=== PATIENT | female | born 1955 | race Hispanic/Latino ===

== ENCOUNTER 2018-01-19 12:17 | Emergency (ER) | payer OTHER ==
--- NOTE | 2018-01-19 14:18 | Emergency Department Report ---
ED Dizziness HPI - General Chief Complaint: Dizziness Stated Complaint: DIZZNESS/NAUSEA Time Seen by Provider: 01/19/18 13:57 Source: patient, family, EMS Mode of arrival: Wheelchair Limitations: No Limitations - History of Present Illness Initial Comments: This is 62-year-old female here report that she was having nausea and dizziness started 4 AM this morning. She states that she came to the hospital by EMS. She is had one previous episode of dizziness with room spinning around. She said that she received Zofran from EMS on her way to the hospital. She denies any chest pain or shortness of breath. Denies any cough, fever or chills. Denies any headache, sore throat or any visual disturbances. She has a history of COPD and anxiety. Patient takes Xanax which she buys off the street she says she takes 1 mg pill about 4 times a night to help her to sleep and for anxiety. Denies any history of withdrawal. Denies any back or abdominal pain. Denies any urinary burning i but reports urinary for frequency. Pain is 0 out of 10 at present. MD Complaint: dizziness, lightheadedness -: This morning Timing: sudden onset Description: sense of movement, "room spinning", lightheadedness, off-balance, nausea History of Same: Yes History of Trauma: No Severity: severe Improves With: rest Worsens With: movement, position, exertion Associated Symptoms: denies: ataxia, chest pain, diaphoresis, fever/chills, loss of appetite, malaise, rash, seizure, shortness of breath, syncope, weakness - Related Data Previous Rx's Medication Instructions Recorded Last Taken Type Cetirizine HCl [ZyrTEC] 10 mg PO QAM 14 Days #14 capsule 01/19/18 Unknown Rx Fluticasone [Flonase] 1 spray NS QDAY 14 Days #1 bottle 01/19/18 Unknown Rx Meclizine [Antivert] 25 mg PO TID PRN #15 tablet 01/19/18 Unknown Rx Promethazine [Phenergan TAB] 25 mg PO Q6HR PRN #12 tab 01/19/18 Unknown Rx cephALEXin [Keflex] 500 mg PO Q8HR 7 Days #14 cap 01/19/18 Unknown Rx Allergies Allergy/AdvReac Type Severity Reaction Status Date / Time No Known Allergies Allergy Verified 01/19/18 12:45 ED Review of Systems ROS: Stated complaint: DIZZNESS/NAUSEA Other details as noted in HPI Constitutional: denies: chills, fever Eyes: denies: eye pain, eye discharge, vision change ENT: congestion. denies: ear pain, throat pain Respiratory: denies: cough, shortness of breath, SOB with exertion, SOB at rest , stridor, wheezing Cardiovascular: denies: chest pain, palpitations, edema, syncope Gastrointestinal: nausea. denies: abdominal pain, vomiting, diarrhea, constipation, hematemesis, melena, hematochezia Genitourinary: frequency. denies: urgency, dysuria, hematuria, discharge Musculoskeletal: denies: back pain, joint swelling, arthralgia Skin: denies: rash, lesions Neurological: abnormal gait, vertigo. denies: headache, weakness, numbness, paresthesias, confusion Psychiatric: denies: anxiety, depression Hematological/Lymphatic: denies: easy bleeding, easy bruising ED Past Medical Hx - Past Medical History Previous Medical History?: Yes Hx Psychiatric Treatment: Yes (anxiety) Hx COPD: Yes - Surgical History Past Surgical History?: No - Family History Family history: hypertension - Social History Smoking Status: Current Every Day Smoker Substance Use Type: None - Medications Home Medications: Home Medications Medication Instructions Recorded Confirmed Last Taken Type Cetirizine HCl [ZyrTEC] 10 mg PO QAM 14 Days #14 capsule 01/19/18 Unknown Rx Fluticasone [Flonase] 1 spray NS QDAY 14 Days #1 bottle 01/19/18 Unknown Rx Meclizine [Antivert] 25 mg PO TID PRN #15 tablet 01/19/18 Unknown Rx Promethazine [Phenergan TAB] 25 mg PO Q6HR PRN #12 tab 01/19/18 Unknown Rx cephALEXin [Keflex] 500 mg PO Q8HR 7 Days #14 cap 01/19/18 Unknown Rx ED Physical Exam - General Limitations: No Limitations General appearance: alert, in no apparent distress - Head Head exam: Present: atraumatic, normocephalic, normal inspection, other (normal exam) - Eye Eye exam: Present: normal appearance, PERRL, EOMI. Absent: nystagmus, periorbital swelling, periorbital tenderness Pupils: Present: normal accommodation - ENT ENT exam: Present: normal orophraynx, mucous membranes moist, normal external ear exam, other (bilateral maxillary and frontal sinuses nontender to palpate. Nasal mucosa congested with clear drainage). Absent: normal exam, TM's normal bilaterally (bilateral TM congested without erythema) - Neck Neck exam: Present: normal inspection, full ROM, other (no C-spine tenderness and negative bruit). Absent: tenderness, lymphadenopathy - Respiratory Respiratory exam: Present: normal lung sounds bilaterally, decreased breath sounds (decreased breath sounds to lung cavazos due to COPD). Absent: respiratory distress, wheezes, rales, rhonchi, stridor, chest wall tenderness, accessory muscle use, prolonged expiratory - Cardiovascular Cardiovascular Exam: Present: regular rate, normal rhythm, normal heart sounds. Absent: systolic murmur, diastolic murmur - GI/Abdominal GI/Abdominal exam: Present: soft, normal bowel sounds. Absent: distended, tenderness, guarding, rebound, rigid, mass - Extremities Exam Extremities exam: Present: normal inspection, full ROM, normal capillary refill , other (No cce. + 2 pulses in all extremities, no neurovascular compromise). Absent: tenderness, pedal edema, joint swelling, calf tenderness - Back Exam Back exam: Present: normal inspection, full ROM, other (ambulates but have abnormal gait because she says she is dizzy and feels like the room is spinning) . Absent: tenderness, CVA tenderness (R), CVA tenderness (L), muscle spasm, paraspinal tenderness, vertebral tenderness, rash noted - Neurological Exam Neurological exam: Present: alert, oriented X3, abnormal gait (due to vertigo), reflexes normal. Absent: motor sensory deficit - Expanded Neurological Exam Expanded Neurological exam: Absent: innattentive, memory loss-remote event, memory loss- recent event, expressive aphasia, total aphasia, tremor, protecting the airway Patient oriented to: Present: person, place, time Speech: Present: fluid speech Cranial nerves: EOM's Intact: Normal, Gag Reflex: Normal, Tongue Deviation: Normal, Nystagmus: Normal, Facial Sensation: Normal Cerebellar function: Romberg: Abnormal Right, Abnormal Left Upper motor neuron: Pronator Drift: Abnormal Right, Abnormal Left, Sensory Extinction: Normal Sensory exam: Upper Extremity Light Touch: Normal, Upper Extremity Pin Prick: Normal, Upper Extremity Temperature: Normal, UE 2 Point Discrimination: Normal, Lower Extremity Light Touch: Normal, Lower Extremity Pin Prick: Normal, Lower Extremity Temperature: Normal, LE 2 Point Discrimination: Normal Motor strength exam: RUE: 5, LUE: 5, RLE: 5, LLE: 5 Best Eye Response (Fabrizio): (4) open spontaneously Best Motor Response (Fabrizio): (6) obeys commands Best Verbal Response (Fabrizio): (5) oriented [place] Total: 15 - Psychiatric Psychiatric exam: Present: normal affect, normal mood - Skin Skin exam: Present: warm, dry, intact, normal color. Absent: rash ED Course Vital Signs 01/19/18 01/19/18 01/19/18 12:42 16:30 18:54 Temperature 97.4 F L Pulse Rate 60 88 Pulse Rate [ 90 Lying] Pulse Rate [ 86 Sitting] Pulse Rate [ 96 H Standing] Respiratory 18 16 Rate Blood Pressure 125/50 Blood Pressure 116/80 [Left] Blood Pressure 122/68 [Lying] Blood Pressure 118/62 [Sitting] Blood Pressure 115/72 [Standing] O2 Sat by Pulse 97 98 Oximetry - Reevaluation(s) Reevaluation #1: 01/19/18 15:29 Patient receives Zofran 8 mg ODT, and Antivert 50 mg by mouth. Normal saline bolus in process. Awaiting UA collection. Reevaluation #2: 01/19/18 16:30 Orthostatic vital signs done and stable. IV fluid completed. Patient states that up and says she felt better her dizziness is not as bad. She says she still feels like the room is spinning. I will give patient some Phenergan because she says she is still nauseated. Lab work is stable. Reevaluation #3: 01/19/18 18:33 I reevaluated patient and she is able to ambulate without any difficulties. She says she is feeling a lot better. No nausea or feeling of room is spinning or feeling of moving when standing. She is able to ambulate without any abnormality in her gait. ED Medical Decision Making - Lab Data Result diagrams: 01/19/18 14:27 01/19/18 14:27 Lab Results 01/19/18 01/19/18 01/19/18 Range/Units 14:27 14:27 16:30 WBC 8.6 (4.5-11.0) K/mm3 RBC 4.97 (3.65-5.03) M/mm3 Hgb 15.2 H (10.1-14.3) gm/dl Hct 45.1 H (30.3-42.9) % MCV 91 (79-97) fl MCH 31 (28-32) pg MCHC 34 (30-34) % RDW 14.2 (13.2-15.2) % Plt Count 259 (140-440) K/mm3 Lymph % (Auto) 13.8 (13.4-35.0) % [place] % (Auto) 3.7 (0.0-7.3) % Eos % (Auto) 0.5 (0.0-4.3) % Baso % (Auto) 0.4 (0.0-1.8) % Lymph # 1.2 (1.2-5.4) K/mm3 [place] # 0.3 (0.0-0.8) K/mm3 Eos # 0.0 (0.0-0.4) K/mm3 Baso # 0.0 (0.0-0.1) K/mm3 Seg Neutrophils % 81.6 H (40.0-70.0) % Seg Neutrophils # 7.0 (1.8-7.7) K/mm3 Sodium 139 (137-145) mmol/L Potassium 4.1 (3.6-5.0) mmol/L Chloride 104.8 (98-107) mmol/L Carbon Dioxide 23 (22-30) mmol/L Anion Gap 15 mmol/L BUN 10 (7-17) mg/dL Creatinine 0.5 L (0.7-1.2) mg/dL Estimated GFR > 60 ml/min BUN/Creatinine Ratio 20 % Glucose 107 H (65-100) mg/dL Calcium 9.7 (8.4-10.2) mg/dL Magnesium 2.10 (1.7-2.3) mg/dL Total Bilirubin 0.40 (0.1-1.2) mg/dL Direct Bilirubin < 0.2 (0-0.2) mg/dL Indirect Bilirubin 0.2 mg/dL AST 17 (5-40) units/L ALT 14 (7-56) units/L Alkaline Phosphatase 107 (35-129) units/L Total Protein 7.7 (6.3-8.2) g/dL Albumin 4.1 (3.9-5) g/dL Albumin/Globulin Ratio 1.1 % Urine Color Yellow (Yellow) Urine Turbidity Clear (Clear) Urine pH 7.0 (5.0-7.0) Ur Specific [place] 1.009 (1.003-1.030) Urine Protein <15 mg/dl (Negative) mg/dL Urine Glucose (UA) Neg (Negative) mg/dL Urine Ketones Neg (Negative) mg/dL Urine Blood Neg (Negative) Urine Nitrite Neg (Negative) Urine Bilirubin Neg (Negative) Urine Urobilinogen < 2.0 (<2.0) mg/dL Ur Leukocyte Esterase Tr (Negative) Urine WBC (Auto) 1.0 (0.0-6.0) /HPF Urine RBC (Auto) 1.0 (0.0-6.0) /HPF U Epithel Cells (Auto) 1.0 (0-13.0) /HPF Urine Bacteria (Auto) 1+ (Negative) /HPF Urine Mucus Few /HPF Urine culture sent - EKG Data -: EKG Interpreted by Me (attending physician) EKG shows normal: sinus rhythm (sinus arrhythmia at 62 beats per minutes) - EKG Data Interpretation: no acute changes (no acute ST abnormalities.), other (mention of left atrial enlargement probably from COPD) - Radiology Data Radiology results: report reviewed CT scan of the head and brain dictated by radiologist and report reviewed by myself. Please see details below Patient: GEOVANNI MORA MR#: [id number] : 1955 Acct:[id number] Age/Sex: 62 / F ADM Date: 01/19/18 Loc: ED Attending Dr: Ordering Physician: YOHANA MACE Date of Service: 01/19/18 Procedure(s): CT head/brain wo con Accession Number(s): [id number] cc: YOHANA MACE CT HEAD WITHOUT CONTRAST INDICATION: Dizziness, nausea. COMPARISON: None similar. FINDINGS: Noncontrast head CT demonstrates overall normal ventricular size, though right lateral ventricle noted larger than the left, an anatomic variant. Slight periventricular and few white matter hypodensities. Normal sulci. No acute infarct, hemorrhage, mass effect, midline shift or abnormal extra-axial fluid collections. Normal image posterior fossa with preserved basilar cisterns. Symmetric eye globes. Clear paranasal sinuses and mastoid air cells. Atherosclerotic ICA calcifications. Mild right external auditory canal debris may be directly visualized. Normal calvarium and skull. Edentulous jaw. Multilevel moderate cervical spondylosis. CONCLUSION: No acute intracranial CT abnormality, as described. Thank you for the opportunity to participate in this patient's care. Transcribed By: RS Dictated By: VITALIY HERNANDEZ MD Electronically Authenticated By: VITALIY HERNANDEZ MD Signed Date/Time: 01/19/181511 DD/ 08 TD/TT: 01/19/181511 - Medical Decision Making This 62-year-old female [facility] via ambulance complaining of dizziness and nausea when she is experienced once before. This episode started this morning. Diagnostics: CT scan of the head and brain without contrast shows no acute abnormalities. Labs: Urinalysis negative except she has trace leukocyte esterase and 1+ bacteria. Urine culture sent. CBC and chemistry stable. EKG stable Assessment/plan 1:Vertigo-patient given Antivert 50 mg by mouth and emergency room and she is now feeling better without any feelings of vertigo. She is given IV fluids 1 L and orthostatic vital signs are stable. EKG stable. Opiate discharged home on Antivert 2: Nausea alone-she received Zofran 4 mg IV which did not relieve her nausea and received Phenergan 50 mg by mouth and now her nausea has resolved and she is able to tolerate juice without any difficulties. Patient reports no nausea present. Be discharged home on Phenergan 3: Vestibular abnormality due to rhinitis.-Physical exam with congested nasal mucosa with drainage and bilateral TM congested.--We will discharge home on Flonase and Zyrtec Urinary tract infection-patient with urinary frequency and will be discharged home with prescription for Keflex. I Explained diagnosis, lab results, EKG results, diagnosis and treatment plan the patient with medication and she voiced understanding. She does not have a primary care physician's I discussed with her she needs to follow up at [facility] for primary care visits and if she has recurrent vertigo she needs to follow up with neurologist and also if her symptoms recur and worsens to return to the emergency room and she voiced understanding. Patient to follow-up with primary care 3 days. Discharged home in stable condition with prescription for Antivert, Phenergan, Keflex, Flonase and Zyrtec. She is stable, vital signs stable and she has no episode of nausea or vertigo at present. Started home with her family. - Differential Diagnosis intracranial abnormality , vertigo, URI, bacterial infection Critical care attestation.: If time is entered above; I have spent that time in minutes in the direct care of this critically ill patient, excluding procedure time. 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 You will need follow-up in 3-5 days regarding in primary care visit. Follow up with neurologist as discussed for vertigo. Take Phenergan for nausea and presented drive or operate heavy machinery while taking this medication as a cause drowsiness Take Flonase, Zyrtec for nasal congestion and ear congestion and this will help with vertigo. TakeKeflex for urinary tract infection take Antivert for vertigo as prescribed If his symptoms return, please return to the emergency room. Received fluid intake to at least 2 L of water daily to keep hydrated Prescriptions: cephALEXin [Keflex] 500 mg PO Q8HR 7 Days #14 cap Cetirizine HCl [ZyrTEC] 10 mg PO QAM 14 Days #14 capsule Fluticasone [Flonase] 1 spray NS QDAY 14 Days #1 bottle Meclizine [Antivert] 25 mg PO TID PRN #15 tablet PRN Reason: Vertigo Promethazine [Phenergan TAB] 25 mg PO Q6HR PRN #12 tab PRN Reason: Nausea Referrals: [facility] [Outside] - 3-5 Days SUSHIL ENAMORADO MD [Staff Physician] - 3-5 Days Forms: Accompanied Note
[2018-01-19] MEDS ORDERED: NACL 0.9% 1000 ML 1,000 ML IV ONE (14:20)
[2018-01-19] MEDS ORDERED: ZOFRAN IV ONE (14:20)
[2018-01-19] MEDS ORDERED: ANTIVERT PO ONE (14:21)
[2018-01-19 14:48] LABS: Basophils % (Auto) 0.4 % (0.0-1.8); Eosinophils % (Auto) 0.5 % (0.0-4.3); Hematocrit 45.1 % (30.3-42.9); Hemoglobin 15.2 gm/dl (10.1-14.3); Lymphocytes # (Auto) 1.2 K/mm3 (1.2-5.4); Lymphocytes % (Auto) 13.8 % (13.4-35.0); Mean Corpuscular HGB Conc 34 % (30-34); Mean Corpuscular Hemoglobin 31 pg (28-32); Mean Corpuscular Volume 91 fl (79-97); Monocytes # (Auto) 0.3 K/mm3 (0.0-0.8); Monocytes % (Auto) 3.7 % (0.0-7.3); Platelet Count 259 K/mm3 (140-440); Red Blood Count 4.97 M/mm3 (3.65-5.03); Red Cell Distribution Width 14.2 % (13.2-15.2)
[2018-01-19 15:02] LABS: Alanine Aminotransferase 14 units/L (7-56); Albumin 4.1 g/dL (3.9-5); BUN/Creatinine Ratio 20; Blood Urea Nitrogen 10 mg/dL (7-17); Calcium 9.7 mg/dL (8.4-10.2); Hemolysis Index 32
[2018-01-19 15:12] LABS: Bilirubin,Direct < 0.2 mg/dL (0-0.2)
--- NOTE | 2018-01-19 15:14 | Cat Scan Report ---
CT HEAD WITHOUT CONTRAST INDICATION: Dizziness, nausea. COMPARISON: None similar. FINDINGS: Noncontrast head CT demonstrates overall normal ventricular size, though right lateral ventricle noted larger than the left, an anatomic variant. Slight periventricular and few white matter hypodensities. Normal sulci. No acute infarct, hemorrhage, mass effect, midline shift or abnormal extra-axial fluid collections. Normal image posterior fossa with preserved basilar cisterns. Symmetric eye globes. Clear paranasal sinuses and mastoid air cells. Atherosclerotic ICA calcifications. Mild right external auditory canal debris may be directly visualized. Normal calvarium and skull. Edentulous jaw. Multilevel moderate cervical spondylosis. CONCLUSION: No acute intracranial CT abnormality, as described. Thank you for the opportunity to participate in this patient's care.
[2018-01-19] MEDS ORDERED: PHENERGAN PO ONE (16:31)
[2018-01-19 17:03] LABS: Bacteria,Urine 1+ /HPF (Negative); Bilirubin,Urine NEG (Negative); Blood,Urine NEG (Negative); Color,Urine Yellow (Yellow); Mucus,Urine FEW /HPF; Protein,Urine <15 mg/dL mg/dL (Negative); Urobilinogen,Urine < 2.0 mg/dL (<2.0)
[2018-01-19 18:56] VITALS: BP 116/80
== END 2018-01-19 18:54 | disposition home or self-care (01) ==
LOC: ED 12:17
DX: N30.00 Acute cystitis without hematuria (principal); J30.9 Allergic rhinitis, unspecified; H83.2X3 Labyrinthine dysfunction, bilateral; F41.9 Anxiety disorder, unspecified; J44.9 Chronic obstructive pulmonary disease, unspecified; F17.200 Nicotine dependence, unspecified, uncomplicated
CPT/HCPCS: 36415; 70450; 80053; 80074; 81001; 83735; 85025; 87086; 93005; 93010; 96361; 96374; 99285; J2405; J7030; Q0169